=== PATIENT | female | born 1970 | race Caucasian/White ===

== ENCOUNTER 2020-01-25 16:23 | Emergency (ER) | payer MEDICAID ==
[~2020-01-25] VITALS: Ht 154.9 cm; Wt 120.5 kg
[2020-01-25] MEDS ORDERED: NORVASC 5MG5 MG/TAB PO (17:57)
[2020-01-25] MEDS ORDERED: COREG12.5 M1 PO (17:57)
[2020-01-25 18:09] VITALS: BP 152/96
== END 2020-01-25 18:10 | disposition home or self-care (01) ==
LOC: ED 16:23
DX: S39.012A Strain of muscle, fascia and tendon of lower back, initial encounter (principal); S16.1XXA Strain of muscle, fascia and tendon at neck level, initial encounter; S46.011A Strain of muscle(s) and tendon(s) of the rotator cuff of right shoulder, initial encounter; I10 Essential (primary) hypertension; G89.29 Other chronic pain; Z91.14 Patient's other noncompliance with medication regimen; W01.0XXA Fall on same level from slipping, tripping and stumbling without subsequent striking against object, initial encounter; Y92.009 Unspecified place in unspecified non-institutional (private) residence as the place of occurrence of the external cause
CPT/HCPCS: J1885; J2360

== ENCOUNTER → 2020-04-04 | Outpatient (CLI) | payer MEDICAID ==
[~2020-04-04] MED LIST: COREG12.5 M1 PO; NORVASC 5MG5 MG/TAB PO
[2020-04-04 10:46] LABS: EOS # 0.1 (0.04-0.40); EOS % 1.1 % (1.0-5.0); HEMATOCRIT 43.8 % (37.0-47.0); HEMOGLOBIN 13.9 g/dL (12.5-16.0); LYMPH# 2.6 (1.50-4.00); MEAN CELL VOLUME 83 fl (78-100); MEAN CORPUSCULAR HEMOGLOBIN 26 pg (27-31); MEAN CORPUSCULAR HGB CONC 32 g/dL (33-37); MONO # 0.5 (0.20-0.80); NEU # 5.6 (1.40-6.50); PLATELET COUNT 365 K/mm3 (130-400); RED BLOOD COUNT 5.31 M/mm3 (4.10-5.30); RED CELL DISTRIBUTION WIDTH 14.9 % (11.5-14.5); WHITE BLOOD COUNT 8.9 K/mm3 (4.8-10.8)
[2020-04-04 10:50] LABS: ALBUMIN 4.1 g/dL (3.5-5.0)
[2020-04-04 10:51] LABS: POTASSIUM 3.7 mmol/L (3.5-5.1); SODIUM 141 mmol/L (136-145)
[2020-04-04 10:52] LABS: CALCIUM 9.7 mg/dL (8.3-10.5)
[2020-04-04 10:53] LABS: GLUCOSE 141 mg/dL (65-105); TOTAL PROTEIN 7.7 g/dL (6.4-8.3)
[2020-04-04 10:54] LABS: CARBON DIOXIDE 29 mmol/L (22-29)
[2020-04-04 10:55] LABS: TOTAL BILIRUBIN 0.7 mg/dL (0.2-1.2)
[2020-04-04 10:58] LABS: AST-SGOT 16 U/L (5-34)
[2020-04-04 10:59] LABS: ALT/SGPT 28 U/L (0-55)
[2020-04-04 11:10] LABS: TROPONIN-I < 0.03 ng/mL (<0.030)
[2020-04-04 11:30] LABS: D-DIMER 0.44 mg/L FEU (0.15-0.50)
== END ==
LOC: RAD 10:21
PROVIDERS: Physician Assistant
DX: Z01.818 Encounter for other preprocedural examination (principal); I10 Essential (primary) hypertension; K21.9 Gastro-esophageal reflux disease without esophagitis; E78.5 Hyperlipidemia, unspecified; F32.9 Major depressive disorder, single episode, unspecified

== ENCOUNTER 2020-05-16 14:00 | Outpatient (RCR) | payer MEDICAID | END 2020-05-16 14:30 | disposition home or self-care (01) | LOC: PT 14:00 | DX: M25.511 Pain in right shoulder (principal) ==

== ENCOUNTER → 2021-05-16 | Outpatient (CLI) | payer MEDICAID ==
[2021-05-16 16:06] LABS: BASO # 0.04 (0.02-0.10); EOS # 0.13 (0.04-0.40); EOS % 1.8 % (1.0-5.0); HEMATOCRIT 42.8 % (37.0-47.0); HEMOGLOBIN 14.2 g/dL (12.5-16.0); LYMPH# 2.21 (1.50-4.00); MEAN CELL VOLUME 80 fl (78-100); MEAN CORPUSCULAR HEMOGLOBIN 26 pg (27-31); MEAN CORPUSCULAR HGB CONC 33 g/dL (33-37); MEAN PLATELET VOLUME 9.2 fl (7.4-10.4); MONO # 0.38 (0.20-0.80); NEU # 4.63 (1.40-6.50); PLATELET COUNT 413 K/mm3 (130-400); RED BLOOD COUNT 5.37 M/mm3 (4.10-5.30); RED CELL DISTRIBUTION WIDTH 14.6 % (11.5-14.5); WHITE BLOOD COUNT 7.4 K/mm3 (4.8-10.8)
[2021-05-16 16:08] LABS: ALBUMIN 3.8 g/dL (3.5-5.0); POTASSIUM 3.8 mmol/L (3.5-5.1)
[2021-05-16 16:09] LABS: CALCIUM 9.3 mg/dL (8.3-10.5)
[2021-05-16 16:11] LABS: TOTAL PROTEIN 7.2 g/dL (6.4-8.3)
[2021-05-16 16:17] LABS: MAGNESIUM 1.75 mg/dL (1.60-2.60)
== END ==
LOC: LAB 15:31
PROVIDERS: Physician Assistant
DX: Z13.29 Encounter for screening for other suspected endocrine disorder (principal); I10 Essential (primary) hypertension; E78.5 Hyperlipidemia, unspecified; K90.9 Intestinal malabsorption, unspecified

== ENCOUNTER → 2021-05-27 | Outpatient (CLI) | payer MEDICAID | LOC: LAB 16:58 | DX: R73.9 Hyperglycemia, unspecified (principal) ==

== ENCOUNTER → 2021-09-09 | Outpatient (CLI) | payer MEDICAID ==
[2021-09-12 12:07] LABS: FOLATE (FOLIC ACID) 2.6 ng/mL (>=4.0)
== END ==
LOC: LAB 08:21
PROVIDERS: Surgery
DX: K21.9 Gastro-esophageal reflux disease without esophagitis (principal); E66.01 Morbid (severe) obesity due to excess calories; I10 Essential (primary) hypertension

== ENCOUNTER 2021-11-11 10:26 | Emergency (ER) | payer MEDICAID ==
[~2021-11-11] VITALS: Wt 112.8 kg
[2021-11-11] MEDS ORDERED: ALPRAZOLAM1 MG PO (11:22)
[2021-11-11] MEDS ORDERED: CARVEDILOL12.5 MG PO (11:23)
[2021-11-11] MEDS ORDERED: AMLODIPINE BESYL5 MG PO (11:23)
[2021-11-11] MEDS ORDERED: DULOXETINE60 MG PO (11:23)
[2021-11-11] MEDS ORDERED: NORCO 325 MG-7.1 TA1 PO (11:24)
[2021-11-11] MEDS ORDERED: EZETIMIBE10 M1 PO (11:24)
[2021-11-11] MEDS ORDERED: LOSARTAN POTASS25 MG PO (11:25)
[2021-11-11] MEDS ORDERED: LIPITOR 80MG80 MG PO (11:25)
[2021-11-11] MEDS ORDERED: GOOD NEIGHBOR L10 MG PO (11:25)
[2021-11-11] MEDS ORDERED: LANSOPRAZOLE30 M2 PO (11:25)
[2021-11-11] MEDS ORDERED: NITROGLYCERIN0.4 M1 SL (11:26)
[2021-11-11] MEDS ORDERED: DITROPAN 5MG TAB5 MG PO (11:26)
[2021-11-11] MEDS ORDERED: MOMETASONE0.05 MG/Ac NS (11:26)
[2021-11-11] MEDS ORDERED: ZOLPIDEM TART10 MG PO (11:27)
[2021-11-11] MEDS ORDERED: PAROXETINE HYDR10 MG PO (11:27)
[2021-11-11] MEDS ORDERED: PREGABALIN300 MG PO (11:27)
[2021-11-11] MEDS ORDERED: VITAMIN D250 MC1 PO (11:28)
[2021-11-11 11:49] LABS: BASO # 0.07 K/mm3 (0.02-0.10); EOS # 0.12 K/mm3 (0.04-0.40); EOS % 1.6 % (1.0-5.0); HEMATOCRIT 42.6 % (37.0-47.0); HEMOGLOBIN 13.9 g/dL (12.5-16.0); LYMPH# 2.22 K/mm3 (1.50-4.00); MEAN CELL VOLUME 84 fl (78-100); MEAN CORPUSCULAR HEMOGLOBIN 27 pg (27-31); MEAN CORPUSCULAR HGB CONC 33 g/dL (33-37); MEAN PLATELET VOLUME 9.6 fl (7.4-10.4); MONO # 0.48 K/mm3 (0.20-0.80); NEU # 4.79 K/mm3 (1.40-6.50); PLATELET COUNT 353 K/mm3 (130-400); RED CELL DISTRIBUTION WIDTH 14.5 % (11.5-14.5); WHITE BLOOD COUNT 7.7 K/mm3 (4.8-10.8)
[2021-11-11 12:00] LABS: ALBUMIN 4.1 g/dL (3.5-5.0)
[2021-11-11 12:01] LABS: POTASSIUM 3.5 mmol/L (3.5-5.1); SODIUM 143 mmol/L (136-145)
[2021-11-11 12:02] LABS: CALCIUM 9.2 mg/dL (8.3-10.5)
[2021-11-11 12:03] LABS: GLUCOSE 130 mg/dL (65-105); TOTAL PROTEIN 7.2 g/dL (6.4-8.3)
[2021-11-11 12:04] LABS: CARBON DIOXIDE 23 mmol/L (22-29)
[2021-11-11 12:05] LABS: TOTAL BILIRUBIN 1.1 mg/dL (0.2-1.2)
[2021-11-11 12:08] LABS: AST-SGOT 21 U/L (5-34)
[2021-11-11 12:10] LABS: ALT/SGPT 27 U/L (0-55); LIPASE 28 U/L (8-78)
[2021-11-11 12:17] LABS: TROPONIN-I < 0.03 ng/mL (<0.030)
[2021-11-11 14:12] LABS: URINE COLOR YELLOW
[2021-11-11 14:13] LABS: URINE APPEARANCE HAZY; URINE BILIRUBIN 1+ (NEGATIVE); URINE BLOOD TRACE (NEGATIVE); URINE GLUCOSE NEGATIVE (NEGATIVE); URINE KETONE NEGATIVE (NEGATIVE); URINE LEUKOCYTE ESTERASE 2+ (NEGATIVE); URINE MUCUS PRESENT (NOT PRESENT); URINE NITRATE POSITIVE (NEGATIVE); URINE PROTEIN(semi-quant) 2+ mg/dL (NEGATIVE); URINE UROBILINOGEN NORMAL (NORMAL); URINE WBC 31-50 /hpf (0-3)
[2021-11-11] MEDS ORDERED: MACROBID 100 M100 MG PO (14:20)
[2021-11-11] MEDS ORDERED: ZOFRAN ODT4 MG PO (14:28)
[2021-11-11 14:39] VITALS: BP 140/69
== END 2021-11-11 14:48 | disposition home or self-care (01) ==
LOC: ED 10:26
PROVIDERS: Nurse Practitioner
DX: N39.0 Urinary tract infection, site not specified (principal); B34.9 Viral infection, unspecified; I10 Essential (primary) hypertension; K21.9 Gastro-esophageal reflux disease without esophagitis; E78.5 Hyperlipidemia, unspecified; F41.8 Other specified anxiety disorders; E66.01 Morbid (severe) obesity due to excess calories; E11.9 Type 2 diabetes mellitus without complications; Z20.822 Contact with and (suspected) exposure to COVID-19; Z79.899 Other long term (current) drug therapy
CPT/HCPCS: J0696; J2405; J7030

== ENCOUNTER → 2022-01-22 | Day surgery (SDC) | payer MEDICARE, MEDICAID ==
[~2022-01-22] MED LIST changes: +ALPRAZOLAM1 MG PO; +AMLODIPINE BESYL5 MG PO; +CARVEDILOL12.5 MG PO; +DITROPAN 5MG TAB5 MG PO; +DULOXETINE60 MG PO; +EZETIMIBE10 M1 PO; +GOOD NEIGHBOR L10 MG PO; +LANSOPRAZOLE30 M2 PO; +LIPITOR 80MG80 MG PO; +LOSARTAN POTASS25 MG PO; +MACROBID 100 M100 MG PO; +MOMETASONE0.05 MG/Ac NS; +NITROGLYCERIN0.4 M1 SL; +NORCO 325 MG-7.1 TA1 PO; +PAROXETINE HYDR10 MG PO; +PREGABALIN300 MG PO; +VITAMIN D250 MC1 PO; +ZOFRAN ODT4 MG PO; +ZOLPIDEM TART10 MG PO
== END ==
LOC: MSO 01-08 14:41
DX: K21.00 Gastro-esophageal reflux disease with esophagitis, without bleeding (principal); K31.7 Polyp of stomach and duodenum; K22.9 Disease of esophagus, unspecified; E66.9 Obesity, unspecified; Z90.49 Acquired absence of other specified parts of digestive tract; Z80.0 Family history of malignant neoplasm of digestive organs; Z79.899 Other long term (current) drug therapy
CPT/HCPCS: 00731; J2704; J7120

== ENCOUNTER → 2022-02-04 | Outpatient (CLI) | payer MEDICARE, MEDICAID ==
[2022-02-04 12:27] LABS: BASO # 0.06 K/mm3 (0.02-0.10); EOS # 0.13 K/mm3 (0.04-0.40); HEMATOCRIT 40.9 % (37.0-47.0); HEMOGLOBIN 13.6 g/dL (12.5-16.0); LYMPH# 2.06 K/mm3 (1.50-4.00); MEAN CELL VOLUME 84 fl (78-100); MEAN CORPUSCULAR HEMOGLOBIN 28 pg (27-31); MEAN CORPUSCULAR HGB CONC 33 g/dL (33-37); MEAN PLATELET VOLUME 9.3 fl (7.4-10.4); MONO # 0.36 K/mm3 (0.20-0.80); NEU # 3.82 K/mm3 (1.40-6.50); PLATELET COUNT 314 K/mm3 (130-400); RED CELL DISTRIBUTION WIDTH 14.3 % (11.5-14.5); WHITE BLOOD COUNT 6.4 K/mm3 (4.8-10.8)
[2022-02-04 13:21] LABS: ALBUMIN 4.1 g/dL (3.5-5.0); POTASSIUM 3.8 mmol/L (3.5-5.1)
[2022-02-04 13:22] LABS: CALCIUM 9.1 mg/dL (8.3-10.5)
[2022-02-04 13:23] LABS: TOTAL PROTEIN 7.4 g/dL (6.4-8.3)
[2022-02-04 13:25] LABS: TOTAL BILIRUBIN 0.8 mg/dL (0.2-1.2)
== END ==
LOC: LAB 11:59
PROVIDERS: Physician Assistant
DX: Z13.29 Encounter for screening for other suspected endocrine disorder (principal); K21.9 Gastro-esophageal reflux disease without esophagitis; E78.5 Hyperlipidemia, unspecified; E11.21 Type 2 diabetes mellitus with diabetic nephropathy; I10 Essential (primary) hypertension; K90.9 Intestinal malabsorption, unspecified; F51.04 Psychophysiologic insomnia; F41.8 Other specified anxiety disorders

== ENCOUNTER → 2022-08-27 | Outpatient (CLI) | payer MEDICARE, MEDICAID | LOC: RAD 11:00 | DX: M43.16 Spondylolisthesis, lumbar region (principal); M51.36 Other intervertebral disc degeneration, lumbar region ==

== ENCOUNTER → 2022-11-09 | Outpatient (CLI) | payer MEDICARE, MEDICAID ==
[2022-11-09 10:27] LABS: BASO # 0.02 K/mm3 (0.02-0.10); EOS # 0.01 K/mm3 (0.04-0.40); EOS % 0.1 % (1.0-5.0); HEMATOCRIT 40.9 % (37.0-47.0); HEMOGLOBIN 12.9 g/dL (12.5-16.0); LYMPH# 1.49 K/mm3 (1.50-4.00); MEAN CELL VOLUME 88 fl (78-100); MEAN CORPUSCULAR HEMOGLOBIN 28 pg (27-31); MEAN CORPUSCULAR HGB CONC 32 g/dL (33-37); MONO # 0.56 K/mm3 (0.20-0.80); NEU # 6.62 K/mm3 (1.40-6.50); PLATELET COUNT 261 K/mm3 (130-400); RED BLOOD COUNT 4.63 M/mm3 (4.10-5.30); RED CELL DISTRIBUTION WIDTH 13.4 % (11.5-14.5); WHITE BLOOD COUNT 8.7 K/mm3 (4.8-10.8)
[2022-11-09 10:33] LABS: ALBUMIN 3.9 g/dL (3.5-5.0); POTASSIUM 4.5 mmol/L (3.5-5.1)
[2022-11-09 10:34] LABS: CALCIUM 8.9 mg/dL (8.3-10.5)
[2022-11-09 10:36] LABS: TOTAL PROTEIN 6.3 g/dL (6.4-8.3)
[2022-11-09 10:37] LABS: TOTAL BILIRUBIN 1.9 mg/dL (0.2-1.2)
[2022-11-09 10:48] LABS: URINE APPEARANCE HAZY; URINE BILIRUBIN NEGATIVE (NEGATIVE); URINE BLOOD NEGATIVE (NEGATIVE); URINE COLOR YELLOW; URINE GLUCOSE NEGATIVE (NEGATIVE); URINE KETONE NEGATIVE (NEGATIVE); URINE LEUKOCYTE ESTERASE TRACE (NEGATIVE); URINE NITRATE POSITIVE (NEGATIVE); URINE PROTEIN(semi-quant) NEGATIVE (NEGATIVE); URINE UROBILINOGEN NORMAL (NORMAL)
== END ==
LOC: LAB 10:06
PROVIDERS: Physician Assistant
DX: Z00.00 Encounter for general adult medical examination without abnormal findings (principal); K21.9 Gastro-esophageal reflux disease without esophagitis; R30.0 Dysuria; E78.5 Hyperlipidemia, unspecified; K90.9 Intestinal malabsorption, unspecified; M53.80 Other specified dorsopathies, site unspecified; G89.4 Chronic pain syndrome; R94.118 Abnormal results of other function studies of eye; E11.21 Type 2 diabetes mellitus with diabetic nephropathy; F41.8 Other specified anxiety disorders; Z13.29 Encounter for screening for other suspected endocrine disorder; Z98.84 Bariatric surgery status

== ENCOUNTER → 2023-09-07 | Outpatient (CLI) | payer MEDICARE, MEDICAID ==
[2023-09-07 08:46] LABS: BASO # 0.03 K/mm3 (0.02-0.10); EOS # 0.07 K/mm3 (0.04-0.40); EOS % 1.5 % (1.0-5.0); HEMATOCRIT 36.6 % (37.0-47.0); HEMOGLOBIN 11.9 g/dL (12.5-16.0); LYMPH# 1.54 K/mm3 (1.50-4.00); MEAN CELL VOLUME 89 fl (78-100); MEAN CORPUSCULAR HEMOGLOBIN 29 pg (27-31); MEAN CORPUSCULAR HGB CONC 33 g/dL (33-37); MEAN PLATELET VOLUME 10.2 fl (7.4-10.4); MONO # 0.32 K/mm3 (0.20-0.80); NEU # 2.63 K/mm3 (1.40-6.50); PLATELET COUNT 247 K/mm3 (130-400); RED BLOOD COUNT 4.12 M/mm3 (4.10-5.30); RED CELL DISTRIBUTION WIDTH 13.1 % (11.5-14.5); WHITE BLOOD COUNT 4.6 K/mm3 (4.8-10.8)
[2023-09-07 08:59] LABS: ALBUMIN 3.3 g/dL (3.5-5.0)
[2023-09-07 09:00] LABS: POTASSIUM 3.7 mmol/L (3.5-5.1)
[2023-09-07 09:01] LABS: CALCIUM 8.7 mg/dL (8.3-10.5)
[2023-09-07 09:02] LABS: TOTAL PROTEIN 5.6 g/dL (6.4-8.3)
[2023-09-07 09:04] LABS: TOTAL BILIRUBIN 0.7 mg/dL (0.2-1.2)
[2023-09-07 09:12] LABS: D-DIMER 0.58 mg/L FEU (0.15-0.50)
== END ==
LOC: LAB 08:20
PROVIDERS: Physician Assistant
DX: S89.91XA Unspecified injury of right lower leg, initial encounter (principal); S80.11XA Contusion of right lower leg, initial encounter; R22.40 Localized swelling, mass and lump, unspecified lower limb

== ENCOUNTER → 2023-09-10 | Outpatient (CLI) | payer MEDICARE | LOC: RAD 09:44 | DX: R79.1 Abnormal coagulation profile (principal) ==

== ENCOUNTER 2024-04-04 07:58 | Outpatient (RCR) | payer MEDICARE, MEDICAID | END 2024-04-28 | LOC: PT | DX: M25.561 Pain in right knee (principal); M25.562 Pain in left knee ==

== ENCOUNTER → 2024-04-04 | Outpatient (CLI) | payer MEDICARE, MEDICAID ==
[2024-04-04 09:20] LABS: BASO # 0.03 K/mm3 (0.02-0.10); EOS # 0.06 K/mm3 (0.04-0.40); EOS % 1.1 % (1.0-5.0); HEMATOCRIT 41.8 % (37.0-47.0); HEMOGLOBIN 13.1 g/dL (12.5-16.0); LYMPH# 2.41 K/mm3 (1.50-4.00); MEAN CELL VOLUME 91 fl (78-100); MEAN CORPUSCULAR HEMOGLOBIN 29 pg (27-31); MEAN CORPUSCULAR HGB CONC 31 g/dL (33-37); MONO # 0.31 K/mm3 (0.20-0.80); NEU # 2.52 K/mm3 (1.40-6.50); PLATELET COUNT 281 K/mm3 (130-400); RED BLOOD COUNT 4.58 M/mm3 (4.10-5.30); WHITE BLOOD COUNT 5.3 K/mm3 (4.8-10.8)
[2024-04-04 09:46] LABS: ALBUMIN 3.6 g/dL (3.5-5.0)
[2024-04-04 09:48] LABS: CALCIUM 9.2 mg/dL (8.3-10.5)
[2024-04-04 09:49] LABS: TOTAL PROTEIN 6.4 g/dL (6.4-8.3)
[2024-04-04 09:51] LABS: TOTAL BILIRUBIN 0.9 mg/dL (0.2-1.2)
[2024-04-04 22:36] LABS: PTH,INTACT 174.1 pg/mL (6.6-88.9)
[2024-04-04 23:33] LABS: FOLATE (FOLIC ACID) 13.1 ng/mL (2.0-20.0)
[2024-04-09 21:06] LABS: VITAMIN A 60.2 ug/dL (())
== END ==
LOC: LAB 09:06
PROVIDERS: Surgery
DX: D50.8 Other iron deficiency anemias (principal); E55.9 Vitamin D deficiency, unspecified; Z98.84 Bariatric surgery status

== ENCOUNTER → 2024-08-10 | Outpatient (CLI) | payer MEDICARE | LOC: LAB 10:26 | DX: E58 Dietary calcium deficiency (principal); E55.9 Vitamin D deficiency, unspecified ==

== ENCOUNTER 2025-01-20 19:58 | Emergency (ER) | payer MEDICARE, MEDICAID ==
[~2025-01-20] VITALS: Wt 68.2 kg
[2025-01-20 21:08] VITALS: BP 118/64
== END 2025-01-20 21:08 | disposition home or self-care (01) ==
LOC: ED 19:58
DX: S63.501A Unspecified sprain of right wrist, initial encounter (principal); E66.01 Morbid (severe) obesity due to excess calories; W00.0XXA Fall on same level due to ice and snow, initial encounter; Y92.009 Unspecified place in unspecified non-institutional (private) residence as the place of occurrence of the external cause
CPT/HCPCS: 15981; A4570

== ENCOUNTER → 2025-03-06 | Outpatient (CLI) | payer MEDICARE, MEDICAID ==
[2025-03-06 09:52] LABS: MEAN CELL VOLUME 90 fl (78-100); MEAN CORPUSCULAR HEMOGLOBIN 29 pg (27-31); MEAN CORPUSCULAR HGB CONC 32 g/dL (33-37); MEAN PLATELET VOLUME 10.1 fl (7.4-10.4); PLATELET COUNT 278 K/mm3 (130-400); RED BLOOD COUNT 4.11 M/mm3 (4.10-5.30); WHITE BLOOD COUNT 5.5 K/mm3 (4.8-10.8)
[2025-03-06 10:02] LABS: ALBUMIN 3.5 g/dL (3.5-5.0)
[2025-03-06 10:03] LABS: CALCIUM 8.5 mg/dL (8.3-10.5)
[2025-03-06 10:04] LABS: TOTAL PROTEIN 6.5 g/dL (6.4-8.3)
[2025-03-06 10:06] LABS: TOTAL BILIRUBIN 0.7 mg/dL (0.2-1.2)
[2025-03-06 10:18] LABS: PARTIAL THROMBOPLASTIN TIME 25.1 SECONDS (21.0-32.0); PROTHROMBIN TIME 10.8 SECONDS (9.0-12.0)
[2025-03-06 10:20] LABS: URINE APPEARANCE CLOUDY (CLEAR); URINE COLOR DARK YELLOW (YELLOW)
[2025-03-06 10:21] LABS: URINE BILIRUBIN 1+ (NEGATIVE); URINE BLOOD NEGATIVE (NEGATIVE); URINE GLUCOSE NEGATIVE (NEGATIVE); URINE KETONE TRACE (NEGATIVE); URINE LEUKOCYTE ESTERASE TRACE (NEGATIVE); URINE NITRATE POSITIVE (NEGATIVE); URINE PROTEIN(semi-quant) TRACE (NEGATIVE)
[2025-03-06 10:22] LABS: URINE WBC 16-30 /hpf (0-3)
[2025-03-06 18:44] LABS: BASO # 0.05 K/mm3 (0.02-0.10); EOS # 0.12 K/mm3 (0.04-0.40); EOS % 2.2 % (1.0-5.0); LYMPH# 1.84 K/mm3 (1.50-4.00); NEU # 3.21 K/mm3 (1.40-6.50)
== END ==
LOC: LAB 09:13
PROVIDERS: Physician Assistant
DX: Z01.810 Encounter for preprocedural cardiovascular examination (principal); Z13.29 Encounter for screening for other suspected endocrine disorder; K90.9 Intestinal malabsorption, unspecified; E78.5 Hyperlipidemia, unspecified